=== PATIENT | female | born 1970 | race Caucasian/White ===

== ENCOUNTER 2022-02-28 20:04 | Emergency (ER) | payer OTHER ==
[2022-02-28] MEDS ORDERED: IBUPROFEN600 MG PO (21:49)
== END 2022-02-28 21:59 | disposition home or self-care (01) ==
LOC: ER1 20:04
DX: J02.9 Acute pharyngitis, unspecified (principal); J30.9 Allergic rhinitis, unspecified; F17.290 Nicotine dependence, other tobacco product, uncomplicated; Z88.0 Allergy status to penicillin; Z20.822 Contact with and (suspected) exposure to COVID-19
CPT/HCPCS: 87081; 87880; 99283; U0002